=== PATIENT | male | born 1965 ===

== ENCOUNTER 2020-07-22 16:38 | Emergency (ER) | payer SELFPAY ==
[~2020-07-22] VITALS: Ht 198.1 cm; Wt 113.6 kg
[2020-07-22 17:10] VITALS: BP 157/104; Ht 198.1 cm; Wt 113.6 kg
== END 2020-07-22 18:30 | disposition home or self-care (01) ==
LOC: D.ER 16:38
DX: M25.531 Pain in right wrist (principal); S52.501D Unspecified fracture of the lower end of right radius, subsequent encounter for closed fracture with routine healing; X58.XXXD Exposure to other specified factors, subsequent encounter